=== PATIENT | female | born 1995 | race Caucasian/White ===

== ENCOUNTER 2022-01-16 11:54 | Observation (INO) ==
[2022-01-16] MEDS ORDERED: Naloxone 0.4 MG/ML INJ IVP PRN (13:22)
[2022-01-16] MEDS: 0.9 % Sodium Chloride 1,000 ML IVC SCH (14:14)
[2022-01-16] MEDS: Morphine Sulfate 2 MG/ML SYRINGE IVP PRN ×2 (14:27→22:04)
[2022-01-16 14:37] LABS: Basophils % 0.2 %; Hematocrit 36.9 % (35.3-44.9); Hemoglobin 13.1 g/dL (11.5-15.4); Immature Granulocytes % 0.4 % (0-4); Lymphocytes # 1.5 K/mcL (0.6-4.6); Lymphocytes % 10.3 %; Mean Corpuscular HGB Conc 35.5 g/dL (31.6-35.5); Mean Corpuscular Hemoglobin 30.8 pg (28.0-33.3); Mean Corpuscular Volume 86.6 fL (83.0-100.0); Mean Platelet Volume 9.5 fL (9.4-12.4); Monocytes # 0.6 K/mcL (0.0-1.3); Monocytes % 4.2 %; Platelet Count 297 K/mcL (140-400); Red Blood Count 4.26 M/mcL (3.82-4.97); Segmented Neutrophils % 84.9 %; White Blood Count 14.1 K/mcL (4.3-11.1)
[2022-01-16 14:54] LABS: Alanine Aminotransferase 38 Units/L (7-52); Albumin 4.2 g/dL (3.5-5.7); Albumin/Globulin Ratio 1.7 (1.1-2.2); Alkaline Phosphatase 29 Units/L (34-104); Aspartate Amino Transferase 12 Units/L (13-39); BUN/Creatinine Ratio 22 (6-26); Bilirubin,Total 0.5 mg/dL (0.3-1.0); Blood Urea Nitrogen 10 mg/dL (6-20); Calcium 8.4 mg/dL (8.6-10.3); Carbon Dioxide 29 mEq/L (23-29); Chloride 100 mEq/L (98-107); Globulin 2.5 g/dL (2.4-3.5); Glucose 94 mg/dL (70-105); Osmolality,Calculated 279 (280-300); Potassium 3.5 mEq/L (3.5-5.1); Sodium 135 mEq/L (136-145); Total Protein 6.7 g/dL (6.4-8.9); eGFR For African Americans > 60 (> 60); eGFR For Non-African Americans > 60 (> 60)
[2022-01-16 15:24] LABS: Amphetamine Screen,Urine Negative ng/mL (Cutoff=1000); Barbiturate Screen,Urine Negative ng/mL (Cutoff=200); Benzodiazepines Screen,Urine Positive ng/mL (Cutoff=200); Cannabinoid Screen,Urine Positive ng/mL (Cutoff = 50); Cocaine Screen,Urine Negative ng/mL (Cutoff= 300); Opiate Screen,Urine Negative ng/mL (Cutoff=300); Phencyclidine Screen,Urine Negative ng/mL (Cutoff=25)
[2022-01-16] MEDS: Ondansetron 4 MG/2 ML VIAL IVP SCH (18:29)
[2022-01-17] MEDS: Ondansetron 4 MG/2 ML VIAL IVP SCH ×4 (00:12→17:28)
[2022-01-17] MEDS: 0.9 % Sodium Chloride 1,000 ML IVC SCH (00:12)
[2022-01-17] MEDS: Morphine Sulfate 2 MG/ML SYRINGE IVP PRN (02:57)
[2022-01-17 06:37] LABS: Basophils % 0.1 %; Eosinophils % 0.1 %; Hematocrit 33.9 % (35.3-44.9); Hemoglobin 11.9 g/dL (11.5-15.4); Immature Granulocytes % 0.3 % (0-4); Lymphocytes # 1.8 K/mcL (0.6-4.6); Lymphocytes % 12.5 %; Mean Corpuscular HGB Conc 35.1 g/dL (31.6-35.5); Mean Corpuscular Hemoglobin 30.4 pg (28.0-33.3); Mean Corpuscular Volume 86.7 fL (83.0-100.0); Mean Platelet Volume 9.5 fL (9.4-12.4); Monocytes # 0.7 K/mcL (0.0-1.3); Monocytes % 4.9 %; Neutrophils # 11.8 K/mcL (1.6-8.9); Platelet Count 275 K/mcL (140-400); Red Blood Count 3.91 M/mcL (3.82-4.97); Segmented Neutrophils % 82.1 %; White Blood Count 14.4 K/mcL (4.3-11.1)
[2022-01-17 07:07] LABS: BUN/Creatinine Ratio 10 (6-26); Blood Urea Nitrogen 5 mg/dL (6-20); Calcium 8.1 mg/dL (8.6-10.3); Carbon Dioxide 22 mEq/L (23-29); Chloride 102 mEq/L (98-107); Glucose 94 mg/dL (70-105); Magnesium 2.1 mg/dL (1.6-2.6); Osmolality,Calculated 275 (280-300); Potassium 3.7 mEq/L (3.5-5.1); Sodium 134 mEq/L (136-145); eGFR For African Americans > 60 (> 60); eGFR For Non-African Americans > 60 (> 60)
[2022-01-17] MEDS: Acetaminophen IV 1,000 MG/100 ML BAG IVPB PRN ×2 (10:14→17:32)
[2022-01-18] MEDS: Ondansetron 4 MG/2 ML VIAL IVP SCH ×3 (00:45→11:21)
[2022-01-18] MEDS: Acetaminophen IV 1,000 MG/100 ML BAG IVPB PRN ×2 (00:45→11:24)
[2022-01-18 11:18] VITALS: BP 104/61; PULSE 102; TEMP 97.9; O2SAT 95
== END 2022-01-18 13:53 | disposition short-term general hospital (02) ==
LOC: 3BNU → SUATTDRO 11:55
PROVIDERS: ADMIT Hospitalist; ATTEND Internal Medicine